=== PATIENT | female | born 1985 | race African-American/Black ===

== ENCOUNTER 2019-08-25 04:11 | Emergency (ER) | payer OTHER ==
[~2019-08-25] VITALS: Ht 154.9 cm; Wt 108.9 kg
[2019-08-25 04:15] VITALS: BP 165/103; TEMP 97.5
[2019-08-25 04:57] LABS: PLATELET COUNT 276 K/uL (152-353)
[2019-08-25 05:07] LABS: POTASSIUM 3.9 mmol/L (3.6-5.2)
== END 2019-08-25 08:39 | disposition home or self-care (01) ==
LOC: ED 04:11
PROVIDERS: Emergency Medicine
DX: K80.20 Calculus of gallbladder without cholecystitis without obstruction (principal)
CPT/HCPCS: 36415; 80053; 81000; 81025; 85027; 96360; 96375; 96376; 99284; J2270; J2405

== ENCOUNTER 2022-04-06 10:20 | Outpatient (CLI) | payer OTHER | END 2022-04-06 19:39 | disposition home or self-care (01) | LOC: MAMMO 10:20 | PROVIDERS: ATTEND Internal Medicine | DX: R92.2 Inconclusive mammogram (principal) ==

== ENCOUNTER 2022-12-10 08:31 | Outpatient (CLI) | payer OTHER | END 2022-12-10 19:20 | disposition home or self-care (01) | LOC: MAMMO 08:31 | PROVIDERS: ATTEND Internal Medicine | DX: R92.8 Other abnormal and inconclusive findings on diagnostic imaging of breast (principal) ==